=== PATIENT | female | born 1960 | race Caucasian/White ===

== ENCOUNTER 2017-02-24 07:21 | Day surgery (SDC) | payer BC ==
[2017-02-24] MEDS ORDERED: PROPOFOL 20 ML ONE ×2 (07:26)
[2017-02-24 07:31] VITALS: BMI 28.9
[2017-02-24] MEDS ORDERED: LIDOCAINE HCL/PF 2% SDV 5ML VIAL ONE (07:46)
[2017-02-24 09:04] VITALS: PULSE 78; TEMP 97.8
[2017-02-24 09:56] VITALS: BP 107/54
== END 2017-02-24 09:45 | disposition home or self-care (01) ==
LOC: FASU-ENDO 07:21
PROVIDERS: ATTEND Internal Medicine Gastroenterology
PROC: 0DJD8ZZ Inspection of Lower Intestinal Tract, Via Natural or Artificial Opening Endoscopic (ICD-10-PCS; principal; 2017-02-24 08:26)
DX: Z12.11 Encounter for screening for malignant neoplasm of colon (principal); Z80.0 Family history of malignant neoplasm of digestive organs

== ENCOUNTER 2017-07-20 09:52 | Emergency (ER) | payer BC, OTHER ==
[2017-07-20 10:01] VITALS: BP 155/62; PULSE 82; TEMP 98.3; BMI 25.7
[2017-07-20] MEDS ORDERED: ACETAMINOPHEN 325 MG TABLET (FP) PO ONE (10:15)
--- NOTE | 2017-07-20 10:16 | PDOC ---
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 The pt states she was walking down the stairs and slipped, landing on her buttock/ lower back. no assoiciated numbness/tingling/waekness. No head injury, loc, dizziness, palpitations, cp, abd pain, sob, neck pain, extremity pain. pt notes she does not easily bruise/bleed, notes when she needs surgery, she gets some FFP. pt was feeling fine this morning, no recent illnesses, fever/chills, cough Past History - Past Medical History Allergies/Adverse Reactions: Allergies Allergy/AdvReac Type Severity Reaction Status Date / Time No Known Drug Allergies Allergy Verified 07/20/17 09:53 HISTAMINE REACTION Allergy Intermediate Hives Uncoded 07/20/17 09:53 Home Medications: Ambulatory Orders Calcium [Natural Calcium] 500 mg PO DAILY 11/26/11 Multivitamin [Multivitamins] 1 each PO DAILY 11/26/11 Anemia: Yes (HEMOPHELIA-) Asthma: No Cancer: No Cardiac Disorders: No CVA: No COPD: No CHF: No Dementia: No Diabetes: No GI Disorders: No Disorders: No HTN: No Hypercholesterolemia: No Liver Disease: No Seizures: No Thyroid Disease: No - Surgical History Abdominal Surgery: No Appendectomy: No Cardiac Surgery: No Cholecystectomy: No Lung Surgery: No Neurologic Surgery: No Orthopedic Surgery: No - Suicide/Smoking/Psychosocial Hx Smoking History: Never smoked Have you smoked in the past 12 months: No Information on smoking cessation initiated: No Hx Alcohol Use: No Drug/Substance Use Hx: No Substance Use Type: None Hx Substance Use Treatment: No Review of Systems - Review of Systems Able to Perform ROS?: Yes Comments:: 07/20/17 10:42 Constitutional - no reported Fever, Chills, HEENT: no reported vision changes Respiratory: no reported cough, sob Cardiac: no reported chest pain, palpitations, light headedness, Abd/GI: no reported abd pain, nausea, vomiting, blood per rectum, melena, diarrhea : no reported dysuria, frequency, Musculskelatal - + back pain no reported joint swelling skin - no reported bruising, erythema, rash neurological: no reported headache, numbness, focal weakness, tingling, hematologic: no reported easy bruising *Physical Exam - Vital Signs Last Vital Signs Temp Pulse Resp BP Pulse Ox 98.3 F 82 20 155/62 100 07/20/17 09:53 07/20/17 09:53 07/20/17 09:53 07/20/17 09:53 07/20/17 09:53 - Physical Exam Comments: 07/20/17 10:44 GENERAL: The patient is awake, alert, and fully oriented, Nontoxic - in no acute distress. HEAD: Normocephalic, atraumatic. EYES: extraocular movements intact, sclera anicteric, conjunctiva clear. ENT: Normal voice, Moist mucous membranes. NECK: Normal range of motion, supple LUNGS: Breath sounds equal, clear to auscultation bilaterally. No wheezes, no rhonchi, no rales. HEART: Regular rate and rhythm, normal S1 and S2 without murmur, rub or gallop. NEUROLOGICAL: No facial assymetry, Normal speech, normal gait PSYCH: Normal mood, normal affect. SKIN: Warm, Dry, normal turgor, no obvious brusing noted BACK: No focal midline tenderness to the cervical, thoracic or lumbar spine. no ecchymosis or stepoffs. MSK: FROM of b/l shoulders, elbows, wrist. FROM of hips, knees, ankles - No signs of ecchymosis, erythema, or crepitus noted on palpation extremities, chest wall, clavicals, ribs, back. Medical Decision Making - Medical Decision Making 07/20/17 10:45 57y F hx of hemophilia C presents s/p slip down 6 steps landing on her behind nwo with back pain without any neuro complaints. exam bening without signs of bruising or other signs of acute focl bony tenderness will give tylenol return precautions were discussed Supportive care at home I discussed the physical exam findings, ancillary test results and final diagnoses with the patient. I answered all of the patient's questions. The patient was satisfied with the care received and felt comfortable with the discharge plan and treatment plan. The patient will call their primary care physician within 24 hours to arrange follow-up and will return to the Emergency Department with any new, persistent or worsening symptoms. *DC/Admit/Observation/Transfer Diagnosis at time of Disposition: Fall Qualifiers: Encounter type: initial encounter Qualified Code(s): W19.XXXA - Unspecified fall, initial encounter Back pain Qualifiers: Back pain location: low back pain Chronicity: acute Back pain laterality: bilateral Sciatica presence: without sciatica Qualified Code(s): M54.5 - Low back pain - Discharge Dispostion Disposition: HOME Condition at time of disposition: Stable Decision to Admit order: No - Referrals - Patient Instructions Printed Discharge Instructions: DI for Low Back Pain Additional Instructions: Return to the emergency department immediately with ANY new, persistent or worsening symptoms including worsening pain, numbness, tingling, weakness or any other concerns Take tylenol as needed for any back pain. You MUST call and follow up with your doctor in 2-3 days for further evaluation of your symptoms. Results were discussed with you. Please make sure your doctor reviews the results of your emergency evaluation. Print Language: GAMBIAN - Post Discharge Activity Forms/Work/School Notes: Back to Work
[2017-07-20] MEDS ORDERED: ACETAMINOPHEN 325 MG TABLET (FP) ONE (10:27)
== END 2017-07-20 10:51 | disposition home or self-care (01) ==
LOC: FER 09:52
DX: M54.5 Low back pain (principal); W10.9XXA Fall (on) (from) unspecified stairs and steps, initial encounter; Y93.89 Activity, other specified; Y92.9 Unspecified place or not applicable; D68.1 Hereditary factor XI deficiency
CPT/HCPCS: 99281-25

== ENCOUNTER 2019-05-12 05:08 | Emergency (ER) | payer BC ==
[2019-05-12 05:22] VITALS: BP 137/76; PULSE 86; TEMP 98.6; BMI 25.4
--- NOTE | 2019-05-12 05:36 | PDOC ---
History of Present Illness - General Chief Complaint: Respiratory Stated Complaint: COUGH Time Seen by Provider: 05/12/19 05:13 History Source: Patient Exam Limitations: No Limitations - History of Present Illness Initial Comments: 05/12/19 05:36 59y F hx of hemophilia C presents with 2 days of mild headache, dry cough, nasal congestion, throat irriation. Pt edmund any fever, cp, weaver, leg swelling, visoin changes, vomiting, focal numbness/tingling/weakness, diarrhea, abd pain. Pt notes that her mother in law recently started having similar symptoms and was tested for COVID on yesterday. Results are pending. ROS: Constitutional - no reported Fever, Chills, HEENT: no reported vision changes, throat irritation Respiratory: +cough, no reported sob, hemoptysis Cardiac: no reported chest pain, palpitations, light headedness, leg swelling Abd/GI: no reported abd pain, nausea, vomiting, blood per rectum, melena, diarrhea : no reported dysuria, frequency, discharge Musculskelatal - no reported back pain, joint swelling skin - no reported bruising, erythema, rash neurological: +headache, no reported numbness, focal weakness, tingling, ataxia, hematologic: no reported easy bruising, easy bleeding Exam: GENERAL: The patient is awake, alert, and fully oriented, Nontoxic - in no acute distress. HEAD: Normocephalic, atraumatic. EYES: extraocular movements intact, sclera anicteric, conjunctiva clear. NECK: Normal range of motion, supple LUNGS: Breath sounds equal, clear to auscultation bilaterally. No wheezes, no rhonchi, no rales. HEART: Regular rate and rhythm, normal S1 and S2 without murmur, rub or gallop. NEUROLOGICAL: No facial assymetry, Normal speech, PSYCH: Normal mood, normal affect. SKIN: Warm, Dry, normal turgor, Suspect viral syndrome consider possible COVID - will await her mother in laws tests. Pt notified she will be considered positive until her mother in laws tests are returned. Will defer testing for her as she is very nildly symptomatic and afebrile. she should refrain from work until her mother in laws tests are resulted and she is feeling improved. Discussed importance of returning for any further complaints including shortness of breath, weaver, or any other concerns. I discussed the physical exam findings, ancillary test results and final diagnoses with the patient. I answered all of the patient's questions. The pat iesoraya was satisfied with the care received and felt comfortable with the discharge plan and treatment plan. The patient will call their primary care physician within 24 hours to arrange follow-up and will return to the Emergency Department with any new, persistent or worsening symptoms. Is this a multiple visit Asthma Patient?: No Past History - Past Medical History Allergies/Adverse Reactions: Allergies Allergy/AdvReac Type Severity Reaction Status Date / Time No Known Drug Allergies Allergy Verified 07/20/17 09:53 HISTAMINE REACTION Allergy Intermediate Hives Uncoded 07/20/17 09:53 Home Medications: Ambulatory Orders Calcium [Natural Calcium] 500 mg PO DAILY 11/26/11 Multivitamin [Multivitamins] 1 each PO DAILY 11/26/11 Anemia: Yes (HEMOPHELIA-) Asthma: No Cancer: No Cardiac Disorders: No CVA: No COPD: No CHF: No Dementia: No Diabetes: No GI Disorders: No Disorders: No HTN: No Hypercholesterolemia: No Liver Disease: No Seizures: No Thyroid Disease: No - Surgical History Abdominal Surgery: No Appendectomy: No Cardiac Surgery: No Cholecystectomy: No Lung Surgery: No Neurologic Surgery: No Orthopedic Surgery: No - Psycho Social/Smoking Cessation Hx Smoking History: Never smoked Have you smoked in the past 12 months: No Hx Alcohol Use: No Drug/Substance Use Hx: No Substance Use Type: None Hx Substance Use Treatment: No *Physical Exam - Vital Signs Last Vital Signs Temp Pulse Resp BP Pulse Ox 98.6 F 86 16 137/76 99 05/12/19 05:08 05/12/19 05:08 05/12/19 05:08 05/12/19 05:08 05/12/19 05:08 Discharge - Discharge Information Problems reviewed: Yes Clinical Impression/Diagnosis: Cough Condition: Stable Disposition: HOME - Admission No - Follow up/Referral Referrals: Jhonatan Goodrich MD [Primary Care Provider] - - Patient Discharge Instructions Patient Printed Discharge Instructions: DI for Cough -- Adult Additional Instructions: Stay home until you receive your mother in laws test results. If she tests negative, you should refrain from work until you are feeling better. Follow up with your primary care doctor in 3-4 days for reavaluation. Return to the Emergency Department if you have any worsening shortness of breath, fever, chest pain or any other concerns. Print Language: TURKMEN - Post Discharge Activity Work/Back to School Note: Back to Work
== END 2019-05-12 05:53 | disposition home or self-care (01) ==
LOC: FER 05:08
DX: R05 Cough (principal)
CPT/HCPCS: 99282-25

== ENCOUNTER 2019-08-21 13:17 | Emergency (ER) | payer BC ==
[2019-08-21 13:24] VITALS: BP 132/54; PULSE 91; TEMP 98.6; BMI 26.9
[2019-08-21] MEDS ORDERED: ACETAMINOPHEN 500 MG TABLET (FP) PO ONE (13:49)
--- NOTE | 2019-08-21 13:56 | PDOC ---
History of Present Illness - General Chief Complaint: Injury Stated Complaint: LEFT 4TH FINGER INJURY Time Seen by Provider: 08/21/19 13:19 - History of Present Illness Initial Comments: 08/21/19 14:04 59yo female with hx of hemophilia (factor XI deficiency) presents for eval of L ring finger injury. States mechanical trip and fall on her concrete stairs, with finger injury. Pain at the proximal Left ring ringer. No head injury. No loc. No other complaints or pain. No neck or back pain. 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 Pmhx: hemophilia All: nkda Past History - Medical History Allergies/Adverse Reactions: Allergies Allergy/AdvReac Type Severity Reaction Status Date / Time No Known Drug Allergies Allergy Verified 08/21/19 13:18 HISTAMINE REACTION Allergy Intermediate Hives Uncoded 08/21/19 13:18 Home Medications: Ambulatory Orders Calcium [Natural Calcium] 500 mg PO DAILY 11/26/11 Multivitamin [Multivitamins] 1 each PO DAILY 11/26/11 Anemia: Yes (HEMOPHELIA-) Asthma: No Cancer: No Cardiac Disorders: No CVA: No COPD: No CHF: No Dementia: No Diabetes: No GI Disorders: No Disorders: No HTN: No Hypercholesterolemia: No Liver Disease: No Seizures: No Thyroid Disease: No - Surgical History Abdominal Surgery: No Appendectomy: No Cardiac Surgery: No Cholecystectomy: No Lung Surgery: No Neurologic Surgery: No Orthopedic Surgery: No - Psycho-Social/Smoking History Smoking History: Never smoked Have you smoked in the past 12 months: No Information on smoking cessation initiated: No - Substance Abuse Hx (Audit-C & DAST Scrn) How often the patient has a drink containing alcohol: Never Score: In Men: 4 or > Positive; In Women: 3 or > Positive: 0 Screen Result (Pos requires Nsg. Audit-10AR): Negative In the last yr the pt used illegal drug/Rx for NonMed reason: No Score: Yes response is considered Positive: 0 Screen Result (Positive result requires Nsg. DAST-10): Negative Review of Systems - Review of Systems Able to Perform ROS?: Yes Is the patient limited Bahamian proficient: No Constitutional: No: Chills, Fever HEENTM: No: Eye Pain, Nose Congestion, Throat Pain Respiratory: No: Cough, Shortness of Breath Cardiac (ROS): No: Chest Pain, Lightheadedness ABD/GI: No: Diarrhea, Nausea, Vomiting, Abdominal cramping : No: Burning, Dysuria Musculoskeletal: Yes: Joint Pain. No: Back Pain, Neck Pain Integumentary: Yes: Bruising. No: Rash Neurological: No: Headache, Numbness, Paresthesia, Tremors, Weakness, Ataxia All Other Systems: Reviewed and Negative *Physical Exam - Vital Signs Last Vital Signs Temp Pulse Resp BP Pulse Ox 98.6 F 91 H 18 132/54 L 99 08/21/19 13:17 08/21/19 13:17 08/21/19 13:17 08/21/19 13:08/21/19 13:17 - Physical Exam General Appearance: Yes: Nourished, Appropriately Dressed. No: Apparent Distress HEENT: positive: EOMI, Normal Voice Neck: positive: Supple. negative: Tender midline Respiratory/Chest: positive: Lungs Clear, Normal Breath Sounds. negative: Respiratory Distress Cardiovascular: positive: Regular Rhythm, Regular Rate, S1, S2. negative: Edema Extremity: positive: Swelling (L ring finger soft tissue swelling over the proximal phalanx, mild bruising), Other (normal cap refill of fingers, sensation intact, limited ROM secondary to swelling and pain, brisk cap refill). negative: Delayed Capillary Refill Integumentary: positive: Bruising (mild bruising to lateral aspect of the L fourth digit) Neurologic: positive: Fully Oriented, Alert, Motor Strength 5/5. negative: Sensory Deficit ED Treatment Course - RADIOLOGY Radiology Studies Ordered: Category Date Time Status HAND- LEFT [RAD] Stat Radiology 08/21/19 13:26 Taken Medical Decision Making - Medical Decision Making 08/21/19 14:09 a/p: 59yo female with L finger injury -xray -tylenol -ice 08/21/19 14:10 xray prelim read shows poss hairline fx pt showed xray films placed in a finger splint ice recommend ortho follow up for hand injury discussed close obs for swelling given hemophilia hx, but no rapid swelling, no paresthesias, no signs of compartment syndrome, no hematomas, discussed monitoring neuro and vasc - cap refill discussed all reasons to return to the ER stable for dc to home pt going to work upstairs. Discharge - Discharge Information Problems reviewed: Yes Clinical Impression/Diagnosis: Fall, Injury, finger Condition: Stable Disposition: HOME - Admission No - Follow up/Referral Referrals: Jhonatan Goodrich MD [Primary Care Provider] - Brendan Diaz MD [Staff Physician] - - Patient Discharge Instructions Patient Printed Discharge Instructions: DI for Finger Fracture Additional Instructions: Please apply ice 20 min on and 20 min off. Please follow up with the hand specialist. Please call me with any concerns. [phone]. If you develop numbness/tingling, rapid swelling call me adore. Work as tolerated and please continue to wear the finger splint. Tylenol for pain. - Post Discharge Activity
== END 2019-08-21 14:00 | disposition home or self-care (01) ==
LOC: FER 13:17
DX: S69.92XA Unspecified injury of left wrist, hand and finger(s), initial encounter (principal); W19.XXXA Unspecified fall, initial encounter
CPT/HCPCS: 73130-TC-LT-FY; 99283-25

== ENCOUNTER 2021-03-16 09:04 | Emergency (ER) | payer BC ==
[2021-03-16 09:12] VITALS: BP 114/51; PULSE 86; TEMP 98.6; BMI 23.8
== END 2021-03-16 10:40 | disposition home or self-care (01) ==
LOC: FER 09:04
DX: M25.511 Pain in right shoulder (principal); M79.604 Pain in right leg
CPT/HCPCS: 73030-TC-RT-FY; 73060-TC-RT-FY; 73590-TC-RT-FY; 99284-25

== ENCOUNTER 2021-10-30 19:08 | Emergency (ER) | payer BC ==
[2021-10-30 19:18] VITALS: BP 132/87; PULSE 79; RESP 16; TEMP 99.2; BMI 23.8
== END 2021-10-30 20:38 | disposition home or self-care (01) ==
LOC: FER 19:08
DX: S92.912A Unspecified fracture of left toe(s), initial encounter for closed fracture (principal); W01.0XXA Fall on same level from slipping, tripping and stumbling without subsequent striking against object, initial encounter
CPT/HCPCS: 73630-TC-LT; 99283-25

== ENCOUNTER 2022-05-28 06:49 | Day surgery (SDC) | payer BC ==
[2022-05-25 10:53] VITALS: BMI 19.3
[2022-05-28 07:18] VITALS: TEMP 97.8
[2022-05-28] MEDS ORDERED: LIDOCAINE HCL/PF 2% SDV 5ML VIAL ONE (07:33)
[2022-05-28] MEDS ORDERED: PROPOFOL 100 ML ONE (07:34)
[2022-05-28 09:26] VITALS: BP 92/50; PULSE 64; RESP 19
== END 2022-05-28 09:25 | disposition home or self-care (01) ==
LOC: FASU-ENDO 06:49
PROVIDERS: ATTEND Internal Medicine Gastroenterology
PROC: 0DJD8ZZ Inspection of Lower Intestinal Tract, Via Natural or Artificial Opening Endoscopic (ICD-10-PCS; principal; 2022-05-28 08:21)
DX: Z12.11 Encounter for screening for malignant neoplasm of colon (principal); Z80.0 Family history of malignant neoplasm of digestive organs

== ENCOUNTER 2022-06-29 21:15 | Emergency (ER) | payer BC ==
[2022-06-29] MEDS ORDERED: DIPHTH,PERTUSS(ACELL),TET 0.5 ML DISP.SYRIN IM ONE ×2 (21:23→21:25)
[2022-06-29 21:29] VITALS: BP 120/80; PULSE 94; RESP 17; TEMP 98.7; BMI 24.5
[2022-06-29] MEDS ORDERED: SULFAMETHOXAZOLE/TRIMETHOPRIM 800MG/160MG D.S. TABLET ONE (22:26)
[2022-06-29] MEDS ORDERED: SULFAMETHOXAZOLE/TRIMETHOPRIM 800MG/160MG D.S. TABLET PO ONE (22:32)
== END 2022-06-29 22:39 | disposition home or self-care (01) ==
LOC: FER 21:15
PROC: 3E0234Z Introduction of Serum, Toxoid and Vaccine into Muscle, Percutaneous Approach (ICD-10-PCS; principal; 2022-06-29)
DX: M25.561 Pain in right knee (principal); L08.9 Local infection of the skin and subcutaneous tissue, unspecified
CPT/HCPCS: 73562-TC-RT-FY; 90715; 99283-25

== ENCOUNTER 2024-10-08 08:09 | Emergency (ER) | payer BC ==
[2024-10-08 08:17] VITALS: BP 125/51; PULSE 83; RESP 16; TEMP 98.4; BMI 29.2
[2024-10-08] MEDS ORDERED: ACETAMINOPHEN 325 MG TABLET (FP) ONE (09:32)
[2024-10-08] MEDS: ACETAMINOPHEN 325 MG TABLET (FP) PO ONE (09:34)
== END 2024-10-08 11:15 | disposition home or self-care (01) ==
LOC: JER 08:09
DX: M54.9 Dorsalgia, unspecified (principal); M54.2 Cervicalgia
CPT/HCPCS: 70450-TC; 72125-TC; 72128-TC; 93005; 93010; 99284-25